=== PATIENT | male | born 1940 | race Hispanic/Latino ===

== ENCOUNTER 2017-07-11 07:59 | Day surgery (SDC) | payer OTHER ==
[2017-07-10 10:04] VITALS: BP 144/78
[2017-07-10 10:11] LABS: BASOPHILS % (AUTO) 0.8 % (0.0-5.0); EOSINOPHILS % (AUTO) 4.7 % (0.0-8.0); HEMATOCRIT 37.9 % (42-54); LYMPHOCYTES % (AUTO) 23.1 % (21.0-51.0); MEAN CORPUSCULAR HEMOGLOBIN 29.9 pg (27.0-33.0); MEAN CORPUSCULAR HGB CONC 34.1 g/dL (32.0-36.0); MEAN CORPUSCULAR VOLUME 87.7 fL (79-99); MONOCYTES % (AUTO) 9.6 % (3.0-13.0); NEUTROPHILS % (AUTO) 61.8 % (40.0-77.0); NUCLEATED RED BLOOD CELLS 0.1 % (0.0-0.19); PLATELET COUNT (AUTO) 358 K/uL (130-400); RED BLOOD CELL COUNT(AUTO) 4.32 MIL/uL (4.50-6.20); RED CELL DISTRIBUTION WIDTH 13.8 % (11.0-15.5); WHITE BLOOD COUNT (AUTO) 9.7 K/uL (4.8-10.8)
[2017-07-10 10:19] LABS: CREATININE 1.2 mg/dL (0.5-1.5); POTASSIUM 4.5 mmol/L (3.5-5.1)
[2017-07-10 10:24] LABS: INR 0.91 (0.85-1.15); PARTIAL THROMBOPLASTIN TIME 28.9 SEC (26.3-35.5); PROTHROMBIN TIME 9.6 SEC (9.6-11.6)
[2017-07-11] VITALS (14 sets, daily range): BP systolic 104–145; BP diastolic 61–73
[~2017-07-11] VITALS: Ht 170.2 cm; Wt 76.3 kg
[~2017-07-11 07:59] MED LIST: AMLO5TAB2 PO; ATOR40TA71 PO; LISI10TA7 PO; METF500T6 PO; METH-370 PO; METO-409 PO; RANI150T7 PO; SODIUM CHLORIDE 0.9% 1000ML 1,000 ML IV SCH
[2017-07-11] MEDS ORDERED: BUPIVACAINE/PF 0.25% 30ML VIAL IJ ONE (10:04)
[2017-07-11] MEDS ORDERED: CEFAZOLIN 1GM / D5W 50ML 150 ML ONE (10:04)
[2017-07-11] MEDS ORDERED: LIDOCAINE HCL 1% MDV 50ML VIAL ONE (10:04)
[2017-07-11] MEDS ORDERED: LEVO500T2 PO (10:57)
[2017-07-11] MEDS ORDERED: ACETAMINOPHEN 325 MG TAB PO PRN (11:00)
[2017-07-11] MEDS ORDERED: CEFAZOLIN SODIUM 1 GM VIAL IVP SCH (11:14)
[2017-07-11] MEDS ORDERED: CEFAZOLIN 1GM / D5W 50ML 50 ML IV SCH (18:20)
== END 2017-07-11 18:50 | disposition home or self-care (01) ==
LOC: DAH 07:59
PROVIDERS: ATTEND Internal Medicine Cardiovascular Disease
DX: I49.5 Sick sinus syndrome (principal); Z95.0 Presence of cardiac pacemaker; I44.2 Atrioventricular block, complete; I11.9 Hypertensive heart disease without heart failure; I35.0 Nonrheumatic aortic (valve) stenosis; E78.5 Hyperlipidemia, unspecified; E78.1 Pure hyperglyceridemia; E11.9 Type 2 diabetes mellitus without complications; E05.90 Thyrotoxicosis, unspecified without thyrotoxic crisis or storm; R00.1 Bradycardia, unspecified; Z79.01 Long term (current) use of anticoagulants; Z79.84 Long term (current) use of oral hypoglycemic drugs; Z79.899 Other long term (current) drug therapy; Z98.890 Other specified postprocedural states; Z82.49 Family history of ischemic heart disease and other diseases of the circulatory system
CPT/HCPCS: 33228; 33263; 36415; 80048; 82948; 85025; 85610; 85730; 93005; A4218; A4606; C1785; J0690; J3490